=== PATIENT | female | born 1950 | race Caucasian/White ===

== ENCOUNTER → 2016-05-14 | Outpatient (CLI) | payer MEDICARE, BC ==
--- NOTE | ~2016-05-14 | PFT ---
[id number] [facility] [address] [facility]. [place], [place] [address] [id number] O MR#: [id number] NAME: MAX DUNCAN ROOM: SEX: F STUDY DATE/TIME: 05/16/2016 : 1950 AGE: 66 STUDY DESCRIPTION: Attending Physician: Ann Sim M.D. Referring Physician: Ann Sim M.D. Primary Care Physician: Ann Sim M.D. PULMONARY DIAGNOSTIC REPORT EXAM Pulmonary function test. FINDINGS Spirometry is suggestive of a restrictive defect. There is no significant response to bronchodilators. Flow volume loop is suggestive of a restrictive defect. Lung volumes suggest air trapping and markedly reduced ERV, which can be seen in obesity. Diffusion capacity is normal. Dictated by... Radhika Leon/scott TD: 05/16/2016 09:40 JOB #: [id number] CC: Ann Sim M.D. PULMONARY DIAGNOSTIC REPORT Page 1 of 1
== END | disposition home or self-care (01) ==
LOC: CRC 09:31
DX: J45.909 Unspecified asthma, uncomplicated (principal); R06.00 Dyspnea, unspecified
CPT/HCPCS: 94060; 94726; 94729